=== PATIENT | male | born 1950 | race African-American/Black ===

== ENCOUNTER 2016-10-28 11:45 | Emergency (ER) | payer BC, MEDICARE, OTHER ==
[2016-10-28 12:13] VITALS: BP 143/86
--- NOTE | 2016-10-28 12:47 | ED Physician Chart ---
Chief Complaint/HPI - Patient Information Date Seen:: 10/28/16 Time Seen:: 12:42 Chief Complaint:: arthritis History of Present Illness:: pt complains of arthritis of major joints of legs...moves around from knees and ankles...says left knee was swollen up yesterday. moderate ache pain. pt says in past his arthritis was made worse by similar weather systems...but not this bad. says he is now experiencing decrease in his quality of life because he has so much pain w walking up a flight of stairs etc... no fever. no cough. no leg swelling or pain. no cp. no sob. pt tried motrin and tylenol w/o relief. has a pmd [facility] but didnt go there today. wants a stronger pain med. no recent travel or camping or carranza exposure. no genital dc. no st. no ELLIS, no neck pain. Allergies:: Allergies Allergy/AdvReac Type Severity Reaction Status Date / Time No Known Allergies Allergy Verified 10/28/16 12:02 Vitals:: Vital Signs - 8 hr 10/28/16 10/28/16 12:07 12:27 Temp 97.9 F HR 86 BP 143/86 143/82 O2 Sat % 97 Historian:: Patient Review of Systems - Review of Systems General/Constitutional: No fever, No chills, No weight loss, No weakness, No diaphoresis, No edema, No loss of appetite Skin: No skin lesions, No rash, No bruising Head: No headache, No light-headedness Eyes: No loss of vision, No pain, No diplopia ENT: No earache, No nasal drainage, No sore throat, No tinnitus Neck: No neck pain, No swelling, No thyromegaly, No stiffness, No mass noted Cardio Vascular: No chest pain, No palpitations, No PND, No orthopnea, No edema Pulmonary: No SOB, No cough, No sputum, No wheezing GI: No nausea, No vomiting, No diarrhea, No pain, No melena, No hematochezia, No constipation, No hematemesis G/U: No dysuria, No frequency, No hematuria Musculoskeletal: Bone or joint pain (arthritis of major joints of legs...moves around), No back pain, No muscle pain Endocrine: No polyuria, No polydipsia Psychiatric: No prior psych history, No depression, No anxiety, No suicidal ideation Hematopoietic: No bruising, No lymphadenopathy Allergic/Immuno: No urticaria, No angioedema Neurological: No syncope, No focal symptoms, No weakness, No paresthesia, No headache, No seizure, No dizziness, No confusion, No vertigo Past Medical History - Past Medical History Past Medical History: HTN, CAD (??) Social History: No Drug Use Medication: Reviewed Family Medical History - Family Member Grandfather Hx Family Congestive Heart Failure: Yes Physical Exam - Physical Examination General/Constitutional: Awake, Well-developed, well-nourished, Alert, No distress, GCS 15, Non-toxic appearing, Ambulatory Other Gen/Cons comments:: mod obese, nontoxic, alert, nad. no joint effusions . ok rom. no undue warmth at joints. no calf edema, no francisco sx. Head: Atraumatic Eyes: Lids, conjuctiva normal, PERRL, EOMI Skin: Nl inspection, No rash, No skin lesions, No ecchymosis, Well hydrated, No lymphadenopathy ENMT: External ears, nose nl, Nasal exam nl, Lips, teeth, gums nl Neck: Nontender, Full ROM w/o pain, No JVD, No nuchal rigidity, No bruit, No mass, No stridor Respiratory: Nl effort/Exclusion, Clear to Auscultation, No Wheeze/Rhonchi/Rales Cardio Vascular: RRR, No murmur, gallop, rubs, NL S1 S2, Carotid/Femoral/Distal pulses equal bilaterally GI: No tenderness/rebounding/guarding, No organomegaly, No hernia, Normal BS's, Nondistended, No mass/bruits, No McBurney tenderness : No CVA tenderness Extremities: No tenderness or effusion, Full ROM, normal strength in all extremities, No edema, Normal digits & nails Neuro/Psych: Alert/oriented, DTR's symmetric, Normal sensory exam, Normal motor strength, Judgement/insight normal, Mood normal, Normal gait, No focal deficits Misc: normal gait, Normal back, No paraspinal tenderness ED Septic Shock - . Is Septic Shock (SBP<90, OR Lactate>4 mmol\L) present?: No - <6hrs of presentation: Vital Signs: Vital Signs - 8 hr 10/28/16 10/28/16 12:07 12:27 Temp 97.9 F HR 86 BP 143/86 143/82 O2 Sat % 97 Reassessment (Disposition) - Reassessment Reassessment:: pt has no pdmp data recently. sx do not seem in line w infections arteritis (lyme , gc etc...) nor likely gout. perhaps RA .. rx norco #15 and ibuprophen 600mg po q8hrs see Dr Jay this week for further advice and care.. Reassessment Condition:: Unchanged - Diagnosis Diagnosis:: exacerbation of chronic arthritis - Aftercare/Follow up Instructions Aftercare/Follow-Up Instructions:: Counseled pt regarding lab results/diagnosis & need follow up - Patient Disposition Discharge/Transfer:: Home Condition at Disposition:: Unchanged
== END 2016-10-28 13:10 | disposition home or self-care (01) ==
LOC: ER 11:45
DX: M13.862 Other specified arthritis, left knee (principal); I10 Essential (primary) hypertension; I25.10 Atherosclerotic heart disease of native coronary artery without angina pectoris
CPT/HCPCS: Z7502